=== PATIENT | male | born 1955 | race Two or more races ===

== ENCOUNTER 2022-08-02 13:21 | Outpatient (CLI) | payer OTHER | END 2022-08-02 13:28 | disposition home or self-care (01) | LOC: RAD 13:21 | PROVIDERS: ATTEND Independent Medical Examiner | DX: J01.90 Acute sinusitis, unspecified (principal) ==

== ENCOUNTER 2024-04-08 08:51 | Inpatient (IN) | payer OTHER ==
[~2024-04-08] VITALS: Ht 180.3 cm; Wt 66.2 kg
[2024-04-08] MEDS ORDERED: ASPIRIN 81 MG TAB.CHEW PO NR (09:30)
[2024-04-08] MEDS ORDERED: 0.9 % SODIUM CHLORIDE 250 ML IV ONE (09:30)
[2024-04-08 10:05] LABS: HEMATOCRIT 42.3 % (39.0-48.0); HEMOGLOBIN 14.2 g/dL (13-16.00); MEAN CELL VOLUME 93.3 fL (80.0-100.00); MEAN CORPUSCULAR HEMOGLOBIN 31.4 pg (27.00-32.0); MEAN CORPUSCULAR HGB CONC 33.7 g/dl (32.0-36.0); PLATELET COUNT 182 K/uL (150-450); RED BLOOD COUNT 4.54 M/uL (4.00-6.00)
[2024-04-08 10:06] LABS: ABG PH 7.437 (7.35-7.45); ABG PO2 124.6 mmHg (80-100); ABG pCO2 24.6 mmHg (35-45); BASE EXCESS -5.9 mmol/l; BICARBONATE 16.2 mmol/l (23-25); SaO2 98.8 %; o2 21 %; puncture site BRADIAL RIGHT
[2024-04-08 10:26] LABS: ALBUMIN 4.2 gm/dL (3.4-5.0); BILIRUBIN TOTAL 0.6 mg/dL (0.3-1.2); CALCIUM 9.4 mg/dL (8.5-10.1); CREATININE SERUM 0.78 mg/dL (0.70-1.30); GFR 98.98; GLOBULINA 3.2 G/DL (2.4-3.5); POTASSIUM 3.89 mEq/L (3.5-5.1); TOTAL PROTEIN 7.4 gm/dL (6.4-8.2)
[2024-04-08] MEDS ORDERED: DEXTROSE 50 % IN WATER 0.5 G/ML VIAL IV ONE (10:45)
[2024-04-08] MEDS ORDERED: MORPHINE SULFATE 4 MG/ML VIAL IV PRN (15:00)
[2024-04-08] MEDS ORDERED: NITROGLYCERIN 50MG IN NSS (KIT INCLUYE LINEA) IV SCH (15:00)
[2024-04-08] MEDS ORDERED: 0.9 % SODIUM CHLORIDE 1,000 ML IV SCH (15:15)
[2024-04-08] MEDS ORDERED: ATORVASTATIN CALCIUM 40 MG TABLET PO SCH (19:30)
[2024-04-08] MEDS ORDERED: METOPROLOL SUCCINATE 25 MG TAB.SR.24H PO SCH (19:32)
[2024-04-08] MEDS ORDERED: ACETAMINOPHEN 500 MG GEL..CAP PO PRN (19:45)
[2024-04-08] MEDS ORDERED: TICAGRELOR 90 MG TABLET PO ONE (19:45)
[2024-04-08] MEDS ORDERED: ONDANSETRON HCL 4 MG in 0.9 % SODIUM CHLORIDE 50 ML IV PRN (19:45)
[2024-04-08] MEDS ORDERED: ASPIRIN 325 MG TABLET.EC PO ONE (19:45)
[2024-04-08] MEDS ORDERED: ENOXAPARIN SODIUM 60 MG/0.6 ML SYRINGE SUBCUTANEO SCH (21:00)
[2024-04-08 22:44] VITALS: BP 138/64; O2SAT 97
[2024-04-08 23:21] VITALS: BP 124/51
[2024-04-09] VITALS (20 sets, daily range): BP systolic 95–148; BP diastolic 40–63; O2SAT 96–100
[2024-04-09 01:08] LABS: INR 1.21
[2024-04-09 01:10] LABS: D DIMER 1.14 MG/L; PARTIAL THROMBOPLASTIN TIME 31.3 SECONDS (22.0-34.0)
[2024-04-09 01:15] LABS: CALCIUM 8.7 mg/dL (8.5-10.1); CREATININE SERUM 0.87 mg/dL (0.70-1.30); GFR 87.26; MAGNESIUM 2.1 mg/dL (1.8-2.4); POTASSIUM 3.99 mEq/L (3.5-5.1)
[2024-04-09] MEDS ORDERED: TICAGRELOR 90 MG TABLET PO SCH (05:00)
[2024-04-09 07:12] LABS: CHOL HDL RATIO 3.3 (0-5.0); TSH 1.22 uIU/mL (0.358-3.74)
[2024-04-09] MEDS ORDERED: ASPIRIN 81 MG TAB.CHEW PO SCH (09:00)
[2024-04-09] MEDS ORDERED: FAMOTIDINE/PF 20 MG in 0.9 % SODIUM CHLORIDE 8 ML IV PUSH SCH (09:00)
[2024-04-09 10:39] LABS: URINE APPEARANCE Clear; URINE BILIRRUBIN Negative (NEGATIVE); URINE BLOOD Negative; URINE COLOR Yellow; URINE GLUCOSE Negative (NEGATIVE); URINE KETONE 15 (NEGATIVE); URINE LEUKOCYTE Negative; URINE NITRATE Negative; URINE PROTEIN Negative (NEGATIVE)
[2024-04-09 10:43] LABS: URINE BACTERIA 11.3 uL (0.0-1933); URINE RBC 2.2 uL (0.0-20.8)
[2024-04-09] MEDS ORDERED: MORPHINE SULFATE 2 MG/ML CARTRIDGE IV PRN (12:00)
[2024-04-09] MEDS ORDERED: NITROGLYCERIN IN 5 % DEXTROSE 50 MG/250 ML BOTTLE IV SCH (12:00)
[2024-04-09 12:06] LABS: URINE CAST 0.15 uL (0.0-1.40); URINE EPITHELIAL CELLS 0.9 uL (0.0-38.8); URINE WBC 1.6 uL (0.0-23.2)
[2024-04-10 00:23] VITALS: BP 105/41; BP 107/40; O2SAT 99
[2024-04-10 01:32] VITALS: BP 108/741; O2SAT 96
[2024-04-10 02:13] VITALS: BP 133/57; O2SAT 98
[2024-04-10 03:55] VITALS: BP 140/60; O2SAT 99
== END 2024-04-10 05:30 | disposition designated cancer center or children's hospital (05) | DRG 282 ==
LOC: ER 08:51 → ICU-2 20:06
PROVIDERS: General Practice; ADMIT Internal Medicine; ATTEND Internal Medicine
PROC: 4A12X4Z Monitoring of Cardiac Electrical Activity, External Approach (ICD-10-PCS; principal; 2024-04-08)
PROC: B246ZZZ Ultrasonography of Right and Left Heart (ICD-10-PCS; 2024-04-08)
PROC: B345ZZZ Ultrasonography of Bilateral Common Carotid Arteries (ICD-10-PCS; 2024-04-08)
PROC: B348ZZZ Ultrasonography of Bilateral Internal Carotid Arteries (ICD-10-PCS; 2024-04-08)
DX: I21.4 Non-ST elevation (NSTEMI) myocardial infarction (principal); I24.9 Acute ischemic heart disease, unspecified; I35.0 Nonrheumatic aortic (valve) stenosis; I65.23 Occlusion and stenosis of bilateral carotid arteries; I11.9 Hypertensive heart disease without heart failure; I48.0 Paroxysmal atrial fibrillation; F10.20 Alcohol dependence, uncomplicated; Y90.9 Presence of alcohol in blood, level not specified

== ENCOUNTER 2024-12-20 06:10 | Day surgery (SDC) | payer OTHER ==
[2024-12-20] MEDS ORDERED: DIPHENHYDRAMINE HCL 50 MG/ML VIAL 1ML IV ONE (16:45)
[2024-12-20] MEDS ORDERED: fentaNYL CITRATE 50 MCG/ML AMPUL IV ONE (16:45)
[2024-12-20] MEDS ORDERED: MIDAZOLAM HCL 2 MG/2 ML VIAL IV ONE (16:45)
[2024-12-20] MEDS ORDERED: FLUMAZENIL 0.5 MG/5 ML ML IV ONE (16:45)
== END 2024-12-20 17:45 | disposition home or self-care (01) ==
LOC: AMB-ENDOS 06:10
PROVIDERS: ATTEND Surgery
DX: K57.30 Diverticulosis of large intestine without perforation or abscess without bleeding (principal); R19.5 Other fecal abnormalities

== ENCOUNTER 2025-05-22 07:53 | Outpatient (CLI) | payer OTHER | END 2025-05-22 07:54 | disposition home or self-care (01) | LOC: NUCLEAR 07:53 | PROVIDERS: ATTEND Internal Medicine Cardiovascular Disease | DX: I65.23 Occlusion and stenosis of bilateral carotid arteries (principal) ==